=== PATIENT | female | born 1950 | race Caucasian/White ===

== ENCOUNTER 2017-10-23 08:54 | Emergency (ER) | payer MEDICARE, SELFPAY ==
[2017-10-23 09:39] LABS: #Basophils 0.1 thou/uL (0.0-0.2); #Eosinphils 0.1 thou/uL (0.0-0.7); #Lymphocytes 3.2 thou/uL (1.20-3.40); #Monocytes 1.6 thou/uL (0.11-0.59); #Neutrophils 7.9 thou/uL (1.40-6.50); %Basophils 0.7 % (0.0-1.0); %Eosinophils 0.6 % (0.0-10.0); %Lymphocytes 24.7 % (21.0-51.0); %Monocytes 12.6 % (0.0-10.0); %Neutrophils 61.3 % (42.0-75.0); Hemoglobin 13.2 g/dL (12.0-16.0); Mean Corpuscular HGB CONC 32.8 g/dL (32.0-36.0); Mean Corpuscular Hemoglobin 32.4 pg (27.0-31.0); Mean Corpuscular Volume 98.8 fl (81.0-99.0); Mean Platelet Volume 7.9 fL (7.4-10.4); Platelet Count 235 thou/uL (130-400); RBC Distribution Width 11.9 % (11.5-14.5); Red Blood Cell (RBC) Count 4.07 mill/uL (4.20-5.40); White Blood Cell (WBC) Count 12.9 thou/uL (4.8-10.8)
--- NOTE | 2017-10-23 09:43 | RAD ---
PORTABLE CHEST ONE VIEW: Date: 10-23-17 Time: 9:24 a.m. History: Syncope. FINDINGS: The heart size is normal. The aorta is tortuous. The lungs are expanded without focal areas of consol idation, pneumothorax, or pleural effusions. IMPRESSION: No acute process. POS: NIA
--- NOTE | 2017-10-23 09:51 | CT ---
CT OF HEAD NONCONTRAST: Indication: Altered mental status. FINDINGS: There is a rounded calcific density of the left posterior cranial fossa which most likely relates to densely calcified meningioma. This measures approximately 11 mm in diameter. No midline shift or aron triculomegaly. No acute intracranial hemorrhage. There is mild chronic microvascular ischemic disease . Remote appearing lacunar infarction is seen within the left cerebellar hemisphere. There is mild mu cosal thickening of the paranasal sinuses. IMPRESSION: 1. No acute intracranial abnormalities. 2. Densely calcified meningioma of the left posterior cranial fossa. 3. Mild chronic microvascular ischemic disease and remote left cerebellar hemispheric lacunar infarct ion. POS: WINIFRED
[2017-10-23 09:56] LABS: Anion Gap 15 mmol/L (10-20); BUN (Urea Nitrogen) 11 mg/dL (9.8-20.1); CK (CPK) 63 U/L (29-168); Calc. Creatinine Clearance 0 mL/min (70-130); Calcium 9.3 mg/dL (7.8-10.44); Carbon Dioxide 26 mmol/L (23-31); Chloride 102 mmol/L (98-107); Estimated GFR-MDRD 65; Glucose 100 mg/dL (80-115); Lipase 14 U/L (8-78); Potassium 4.6 mmol/L (3.5-5.1); Sodium 138 mmol/L (136-145)
[2017-10-23 11:48] LABS: Bilirubin Negative (Negative); Blood, Urine Negative (Negative); Clarity CLEAR (Clear); Glucose, Urine (Dipstick) Negative (Negative); Leukocyte Negative (Negative); Nitrite Negative (Negative); Protein, Urine (Dipstick) Negative (Neg-Trace); Specific Gravity, Urine 1.028 (1.002-1.036)
--- NOTE | 2017-11-16 15:14 | EKG ---
Test Reason : Blood Pressure : / mmHG Vent. Rate : 084 BPM Atrial Rate : 084 BPM P-R Int : 162 ms QRS Dur : 074 ms QT Int : 366 ms P-R-T Axes : 049 040 037 degrees QTc Int : 432 ms Normal sinus rhythm Normal ECG Confirmed by LAURI YOUNGBLOOD, TERRY ([id number]), fashion editor BRIE CLEMONS ([id number]) on 11/16/2017 3:14:04 PM Referred By: Confirmed By:TERRY CARREON MD
== END 2017-10-23 11:53 ==
LOC: ERS 08:54
DX: S09.90XA Unspecified injury of head, initial encounter (principal); F03.90 Unspecified dementia, unspecified severity, without behavioral disturbance, psychotic disturbance, mood disturbance, and anxiety; I10 Essential (primary) hypertension; W01.0XXA Fall on same level from slipping, tripping and stumbling without subsequent striking against object, initial encounter
CPT/HCPCS: 51701; 70450; 71045; 80048; 81003; 82550; 83690; 85025; 87804; 93005; 96360; 96361; A4353